=== PATIENT | female | born 1970 | race African-American/Black ===

== ENCOUNTER 2021-03-01 16:33 | Emergency (ER) | payer MEDICAID ==
[~2021-03-01] VITALS: Ht 162.6 cm; Wt 73.0 kg
[2021-03-01] MEDS ORDERED: ACETAMINOPHEN 325MG TABLET PO STA (17:14)
[2021-03-01 17:36] LABS: BASOPHILS % 0.7 % (0.0-2.0); EOSINOPHILS % 0.8 % (0.0-5.0); HEMATOCRIT. 42.1 % (36.0-48.0); HEMOGLOBIN. 14.3 g/dL (12.0-16.0); LYMPHOCYTES % 31.7 % (20.0-50.0); MEAN CORPUSCULAR HEMOGLOBIN 31.9 pg (28.0-32.0); MEAN CORPUSCULAR VOLUME 93.8 fL (81.0-99.0); MEAN PLATELET VOLUME 7.5 fl (7.4-10.4); MONOCYTES % 10.8 % (2.0-8.0); PLATELET 361 x1000/uL (130-400); RED BLOOD CELL COUNT 4.49 mill/uL (4.2-5.4); RED CELL DISTRIBUTION WIDTH 13.7 % (11.6-14.6)
[2021-03-01 17:44] LABS: CHLORIDE 104 mEq/L (98-107)
[2021-03-01] MEDS ORDERED: AMLODIPINE 2.5MG TABLET PO ONE (18:30)
[2021-03-01] MEDS ORDERED: AMLO2.5T2 MT (20:08)
[2021-03-01 20:38] VITALS: BP 145/89
== END 2021-03-01 20:39 | disposition home or self-care (01) ==
LOC: ER 16:33 → CANBEDREQ 19:07 → ER 20:39
DX: R07.89 Other chest pain (principal); I16.0 Hypertensive urgency; Z71.89 Other specified counseling
CPT/HCPCS: 36415; 71045; 80053; 82962; 84484; 85025; 93005; 99285

== ENCOUNTER 2021-03-02 11:59 | Emergency (ER) | payer MEDICAID ==
[~2021-03-02] VITALS: Ht 162.6 cm; Wt 68.0 kg
[~2021-03-02 11:59] MED LIST: AMLO2.5T2 MT
[2021-03-02 12:07] VITALS: BP 127/88
== END 2021-03-02 12:43 | disposition home or self-care (01) ==
LOC: ER 11:59
DX: R07.89 Other chest pain (principal); F41.9 Anxiety disorder, unspecified; Z56.89 Other problems related to employment; Z63.79 Other stressful life events affecting family and household
CPT/HCPCS: 93005; 99283

== ENCOUNTER 2021-03-19 09:59 | Inpatient (IN) | payer BC, MEDICAID ==
[~2021-03-19] VITALS: Ht 162.6 cm; Wt 74.4 kg
[2021-03-19 14:23] LABS: BASOPHILS % 0.8 % (0.0-2.0); EOSINOPHILS % 0.6 % (0.0-5.0); HEMOGLOBIN. 16.3 g/dL (12.0-16.0); MEAN CORPUSCULAR HEMOGLOBIN 31.7 pg (28.0-32.0); MEAN CORPUSCULAR VOLUME 93.5 fL (81.0-99.0); MEAN PLATELET VOLUME 7.6 fl (7.4-10.4); MONOCYTES % 8.7 % (2.0-8.0); NEUTROPHILS % 53.9 % (40.0-76.0); PLATELET 336 x1000/uL (130-400); RED BLOOD CELL COUNT 5.13 mill/uL (4.2-5.4)
[2021-03-19 14:31] LABS: CHLORIDE 106 mEq/L (98-107)
[2021-03-19] MEDS ORDERED: KETAMINE HCL 50 MG/ML 10ML IV ONE (16:45)
[2021-03-19] MEDS ORDERED: IOHEXOL-350 100 ML BOTTLE ONE (17:38)
[2021-03-19] MEDS ORDERED: HYDROMORPHONE HCL/PF 2MG/ML CPJ IV ONE (18:30)
[2021-03-19] MEDS ORDERED: MORPHINE SULFATE 4 MG/ML CPJ (NOT FOR IM USE) IV PRN (23:19)
[2021-03-19] MEDS ORDERED: ONDANSETRON HCL 4MG/2ML INJ IV PRN (23:30)
[2021-03-20] VITALS (9 sets, daily range): BP systolic 126–162; BP diastolic 59–100
[2021-03-20] MEDS: PANTOPRAZOLE SODIUM 40 MG/VIAL IV SCH (09:59)
[2021-03-20] MEDS ORDERED: NALOXONE HCL 0.4MG/ML VIAL IV PRN (11:15)
[2021-03-20] MEDS: ACETAMINOPHEN 325MG TABLET PO PRN ×2 (11:23→18:35)
[2021-03-20] MEDS ORDERED: ONDANSETRON HCL 4MG/2ML INJ IV PRN (12:45)
[2021-03-20] MEDS ORDERED: CLONIDINE 0.1MG TABLET PO PRN (12:45)
[2021-03-20] MEDS ORDERED: ACETAMINOPHEN 325MG TABLET PO PRN (12:45)
[2021-03-20] MEDS ORDERED: AMLO2.5T45 MT (13:44)
[2021-03-20 14:03] LABS: BG BASE EXCESS 0.6 mmol/L (-2.0-2.0); BG CARBOXYHEMOGLOBIN 0.5 % (0.5-1.5); BG DEOXYHEMOGLOBIN 2.2 % (0.0-5.0); BG FRACTION INSPIRED OXYGEN 35; BG HCO3 ACT 24.6 mmol/L (22.0-26.0); BG METHEMOGLOBIN 0.2 % (0.0-1.5); BG OXYGEN SATURATION 97.8 % (92.0-98.5); BG OXYHEMOGLOBIN 97.1 % (94.0-97.0); BG PCO2 37.6 mmHg (35.0-45.0); BG PH 7.434 (7.350-7.450); BG PO2 101.4 mmHg (75.0-100.0); BG SAMPLE SITE RIGHT BRACHIAL; BG VENT MODE MASK - VENTI
[2021-03-20] MEDS: LEVOFLOXACIN 500MG PREMIX 100 ML IV SCH (15:23)
[2021-03-20] MEDS: ENOXAPARIN 40MG/0.4ML SYR SUBCUT SCH (15:24)
[2021-03-20] MEDS: MORPHINE SULFATE 2 MG/ML CPJ (NOT FOR IM USE) IV PRN ×2 (15:25→19:40)
[2021-03-20] MEDS: IPRATROPIUM/ALBUTEROL 0.5-3(2.5)MG/3ML NEB HHN SCH ×2 (15:29→20:29)
[2021-03-20 17:12] LABS: BG BASE EXCESS -1.2 mmol/L (-2.0-2.0); BG CARBOXYHEMOGLOBIN 0.2 % (0.5-1.5); BG DEOXYHEMOGLOBIN 0.7 % (0.0-5.0); BG FRACTION INSPIRED OXYGEN 100; BG HCO3 ACT 22.4 mmol/L (22.0-26.0); BG METHEMOGLOBIN 0.4 % (0.0-1.5); BG OXYGEN SATURATION 99.3 % (92.0-98.5); BG OXYHEMOGLOBIN 98.7 % (94.0-97.0); BG PCO2 34.6 mmHg (35.0-45.0); BG PO2 233.5 mmHg (75.0-100.0); BG SAMPLE SITE RIGHT BRACHIAL; BG TOTAL HEMOGLOBIN 14.7 g/dL (12.0-18.0); BG VENT MODE MASK - NRB
[2021-03-20 17:51] LABS: BASOPHILS % 0.4 % (0.0-2.0); EOSINOPHILS % 0.7 % (0.0-5.0); HEMATOCRIT. 44.3 % (36.0-48.0); HEMOGLOBIN. 15.1 g/dL (12.0-16.0); LYMPHOCYTES % 16.7 % (20.0-50.0); MEAN CORPUSCULAR HEMOGLOBIN 31.6 pg (28.0-32.0); MEAN CORPUSCULAR VOLUME 92.9 fL (81.0-99.0); MEAN PLATELET VOLUME 7.8 fl (7.4-10.4); MONOCYTES % 12.8 % (2.0-8.0); NEUTROPHILS % 69.4 % (40.0-76.0); PLATELET 343 x1000/uL (130-400); RED BLOOD CELL COUNT 4.77 mill/uL (4.2-5.4)
[2021-03-20 18:10] LABS: CHLORIDE 105 mEq/L (98-107)
[2021-03-20 18:19] LABS: CREATINE KINASE 684 IU/L (26-192)
[2021-03-20 18:22] LABS: CREATINE KINASE MB FRACTION 3.5 ng/mL (0.5-3.6)
[2021-03-20 23:53] LABS: CREATINE KINASE MB FRACTION 1.9 ng/mL (0.5-3.6)
[2021-03-21] VITALS (12 sets, daily range): BP systolic 133–155; BP diastolic 75–102
[2021-03-21] MEDS: IPRATROPIUM/ALBUTEROL 0.5-3(2.5)MG/3ML NEB HHN SCH ×6 (01:02→21:21)
[2021-03-21] MEDS: MORPHINE SULFATE 2 MG/ML CPJ (NOT FOR IM USE) IV PRN ×4 (04:42→20:48)
[2021-03-21] MEDS: PANTOPRAZOLE SODIUM 40 MG/VIAL IV SCH (09:20)
[2021-03-21 09:40] LABS: BASOPHILS % 0.6 % (0.0-2.0); EOSINOPHILS % 1.2 % (0.0-5.0); HEMATOCRIT. 42.8 % (36.0-48.0); HEMOGLOBIN. 14.3 g/dL (12.0-16.0); MEAN CORPUSCULAR HEMOGLOBIN 31.6 pg (28.0-32.0); MEAN CORPUSCULAR VOLUME 94.4 fL (81.0-99.0); MEAN PLATELET VOLUME 7.6 fl (7.4-10.4); MONOCYTES % 11.6 % (2.0-8.0); NEUTROPHILS % 65.6 % (40.0-76.0); PLATELET 334 x1000/uL (130-400); RED BLOOD CELL COUNT 4.53 mill/uL (4.2-5.4); RED CELL DISTRIBUTION WIDTH 12.9 % (11.6-14.6)
[2021-03-21 09:45] LABS: CHLORIDE 104 mEq/L (98-107)
[2021-03-21] MEDS: ENOXAPARIN 40MG/0.4ML SYR SUBCUT SCH (14:14)
[2021-03-21] MEDS: LEVOFLOXACIN 500MG PREMIX 100 ML IV SCH (14:15)
[2021-03-21] MEDS: FAMOTIDINE 20MG/2ML VIAL IV SCH (20:47)
[2021-03-21] MEDS: ACETAMINOPHEN 325MG TABLET PO PRN (23:40)
[2021-03-21] MEDS: ALPRAZOLAM 0.5 MG TABLET PO PRN (23:40)
[2021-03-22] VITALS (12 sets, daily range): BP systolic 118–152; BP diastolic 54–99
[2021-03-22] MEDS: IPRATROPIUM/ALBUTEROL 0.5-3(2.5)MG/3ML NEB HHN SCH ×6 (01:03→19:47)
[2021-03-22] MEDS: MORPHINE SULFATE 2 MG/ML CPJ (NOT FOR IM USE) IV PRN ×2 (02:55→20:27)
[2021-03-22] MEDS: FAMOTIDINE 20MG/2ML VIAL IV SCH (09:27)
[2021-03-22] MEDS: ENOXAPARIN 40MG/0.4ML SYR SUBCUT SCH (13:51)
[2021-03-22] MEDS: LEVOFLOXACIN 500MG PREMIX 100 ML IV SCH (13:51)
[2021-03-22] MEDS: FAMOTIDINE 20MG TABLET PO SCH (20:27)
[2021-03-22] MEDS: ALPRAZOLAM 0.5 MG TABLET PO PRN (22:53)
[2021-03-23] VITALS (10 sets, daily range): BP systolic 123–150; BP diastolic 77–102
[2021-03-23] MEDS: IPRATROPIUM/ALBUTEROL 0.5-3(2.5)MG/3ML NEB HHN SCH ×3 (00:38→13:02)
[2021-03-23] MEDS: FAMOTIDINE 20MG TABLET PO SCH (08:03)
[2021-03-23] MEDS: MORPHINE SULFATE 2 MG/ML CPJ (NOT FOR IM USE) IV PRN (13:39)
[2021-03-23] MEDS: LEVOFLOXACIN 500MG PREMIX 100 ML IV SCH (14:11)
[2021-03-23] MEDS: ENOXAPARIN 40MG/0.4ML SYR SUBCUT SCH (14:11)
[2021-03-24] MEDS ORDERED: LEVOFLOXACIN 500MG TABLET PO SCH (11:00)
== END 2021-03-23 16:35 | disposition home or self-care (01) | DRG 190 ==
LOC: ER 09:59 → MICUSO 18:24 → EDBEDREQ 18:36 → 5WST 03-20 13:14 → 5EST 03-20 14:08
PROVIDERS: ADMIT Internal Medicine; ATTEND Internal Medicine
PROC: 0W9B30Z Drainage of Left Pleural Cavity with Drainage Device, Percutaneous Approach (ICD-10-PCS; principal; 2021-03-19)
DX: J43.9 Emphysema, unspecified (principal); J96.00 Acute respiratory failure, unspecified whether with hypoxia or hypercapnia; J93.12 Secondary spontaneous pneumothorax; Z20.822 Contact with and (suspected) exposure to COVID-19; I10 Essential (primary) hypertension; F12.90 Cannabis use, unspecified, uncomplicated; Z87.891 Personal history of nicotine dependence
CPT/HCPCS: 36415; 36600; 71045; 71275; 80048; 80053; 82375; 82550; 82553; 82805; 83880; 84484; 85025; 85379; 93005; 93306; 94640; 99285; C9113; J1170; J1650; J1956; J2270; J2405; J3490; Q9967; U0003; U0005

== ENCOUNTER 2021-10-16 22:46 | Emergency (ER) | payer BC, MEDICAID ==
[~2021-10-16] VITALS: Ht 162.6 cm; Wt 70.0 kg
[~2021-10-16 22:46] MED LIST changes: +AMLO2.5T45 MT
[2021-10-16] MEDS ORDERED: VISCOUS LIDOCAINE 2% 15 ML UDC PO STA (23:18)
[2021-10-16] MEDS ORDERED: DICYCLOMINE 10 MG/5 ML ORAL SYR PO STA (23:18)
[2021-10-16] MEDS ORDERED: MAGNESIUM/ALUMINUM HYDROXIDE/SIMETHICONE 30ML UDC PO STA (23:18)
[2021-10-16 23:49] LABS: BASOPHILS % 1.1 % (0.0-2.0); EOSINOPHILS % 2.4 % (0.0-5.0); HEMATOCRIT. 39.6 % (36.0-48.0); HEMOGLOBIN. 13.4 g/dL (12.0-16.0); LYMPHOCYTES % 34.8 % (20.0-50.0); MEAN CORPUSCULAR HEMOGLOBIN 30.3 pg (28.0-32.0); MEAN CORPUSCULAR VOLUME 89.6 fL (81.0-99.0); MEAN PLATELET VOLUME 7.6 fl (7.4-10.4); NEUTROPHILS % 51.7 % (40.0-76.0); PLATELET 326 x1000/uL (130-400); RED BLOOD CELL COUNT 4.42 mill/uL (4.2-5.4); RED CELL DISTRIBUTION WIDTH 14.3 % (11.6-14.6)
[2021-10-17 00:02] LABS: CHLORIDE 105 mEq/L (98-107)
[2021-10-17 00:42] LABS: CLARITY URINE CLEAR (CLEAR); COLOR URINE YELLOW (YELLOW); KETONES URINE NEGATIVE (NEGATIVE); LEUKOCYTE ESTERASE URINE NEGATIVE (NEGATIVE); NITRITE URINE NEGATIVE (NEGATIVE); OCCULT BLOOD URINE 2+ (NEGATIVE); PROTEIN URINE TRACE (NEGATIVE); SPECIFIC GRAVITY URINE 1.021 (1.005-1.030); UROBILINOGEN URINE 0.2 E.U./dL (0.2-1.0)
[2021-10-17 02:00] VITALS: BP 131/89
[2021-10-17] MEDS ORDERED: FAMO-135 MT (02:02)
== END 2021-10-17 02:21 | disposition home or self-care (01) ==
LOC: ER 22:46
DX: R10.13 Epigastric pain (principal); K76.0 Fatty (change of) liver, not elsewhere classified; I10 Essential (primary) hypertension; Z88.6 Allergy status to analgesic agent
CPT/HCPCS: 36415; 76705; 80053; 81003; 85025; 99284

== ENCOUNTER 2021-11-07 09:33 | Emergency (ER) | payer BC, MEDICAID ==
[~2021-11-07] VITALS: Ht 162.6 cm; Wt 69.0 kg
[~2021-11-07 09:33] MED LIST changes: +FAMO-135 MT
[2021-11-07 10:06] VITALS: BP 168/92
[2021-11-07 11:19] LABS: BASOPHILS % 1.1 % (0.0-2.0); EOSINOPHILS % 8.9 % (0.0-5.0); HEMATOCRIT. 41.7 % (36.0-48.0); HEMOGLOBIN. 14.1 g/dL (12.0-16.0); LYMPHOCYTES % 25.1 % (20.0-50.0); MEAN CORPUSCULAR HEMOGLOBIN 29.8 pg (28.0-32.0); MEAN CORPUSCULAR VOLUME 88.2 fL (81.0-99.0); MEAN PLATELET VOLUME 7.9 fl (7.4-10.4); MONOCYTES % 8.7 % (2.0-8.0); NEUTROPHILS % 56.2 % (40.0-76.0); PLATELET 317 x1000/uL (130-400); RED BLOOD CELL COUNT 4.73 mill/uL (4.2-5.4); RED CELL DISTRIBUTION WIDTH 14.3 % (11.6-14.6)
[2021-11-07 11:33] LABS: CHLORIDE 104 mEq/L (98-107)
[2021-11-07 11:37] LABS: HCG SCREEN NEGATIVE
[2021-11-07 13:01] LABS: CLARITY URINE CLEAR (CLEAR); COLOR URINE YELLOW (YELLOW); KETONES URINE NEGATIVE (NEGATIVE); LEUKOCYTE ESTERASE URINE 3+ (NEGATIVE); NITRITE URINE NEGATIVE (NEGATIVE); OCCULT BLOOD URINE TRACE (NEGATIVE); PROTEIN URINE NEGATIVE (NEGATIVE); SPECIFIC GRAVITY URINE 1.012 (1.005-1.030); UROBILINOGEN URINE 0.2 E.U./dL (0.2-1.0)
[2021-11-07] MEDS ORDERED: CEPH250C2 MT (14:18)
== END 2021-11-07 14:45 | disposition home or self-care (01) ==
LOC: ER 09:33
DX: N30.00 Acute cystitis without hematuria (principal); I10 Essential (primary) hypertension
CPT/HCPCS: 36415; 76830; 76856; 80053; 81003; 84703; 85025; 99284

== ENCOUNTER 2023-11-17 15:51 | Emergency (ER) | payer BC, MEDICAID, OTHER ==
[~2023-11-17] VITALS: Ht 162.6 cm; Wt 77.0 kg
[~2023-11-17 15:51] MED LIST changes: +CEPH250C2 MT
[2023-11-17 15:55] VITALS: BP 145/82; PULSE 92; RESP 14; TEMP 98.1; O2SAT 99
[2023-11-17 17:05] LABS: CLARITY URINE CLEAR (CLEAR); COLOR URINE YELLOW (YELLOW); GLUCOSE URINE NEGATIVE (NEGATIVE); KETONES URINE NEGATIVE (NEGATIVE); LEUKOCYTE ESTERASE URINE 2+ (NEGATIVE); NITRITE URINE NEGATIVE (NEGATIVE); OCCULT BLOOD URINE NEGATIVE (NEGATIVE); PROTEIN URINE NEGATIVE (NEGATIVE); UROBILINOGEN URINE 0.2 E.U./dL (0.2-1.0)
[2023-11-17 17:50] LABS: BACTERIA URINE 1+; RBC URINE 0-2 /hpf (0-2); SQUAMOUS EPITHELIAL CELL URINE 1+ /lpf (RARE/1+)
[2023-11-17] MEDS ORDERED: NITR-87 MT (17:52)
== END 2023-11-17 18:12 | disposition home or self-care (01) ==
LOC: ER 16:06
DX: N39.0 Urinary tract infection, site not specified (principal); I10 Essential (primary) hypertension
CPT/HCPCS: 81003; 81025; 99283

== ENCOUNTER 2024-11-20 15:49 | Emergency (ER) | payer SELFPAY ==
[~2024-11-20] VITALS: Ht 162.6 cm; Wt 77.0 kg
[~2024-11-20 15:49] MED LIST changes: +NITR-87 MT
[2024-11-20 16:04] VITALS: O2SAT 99
[2024-11-20 17:13] LABS: BASOPHILS % 1.0 % (0.0-2.0); EOSINOPHILS % 0.8 % (0.0-5.0); HEMATOCRIT. 40.6 % (36.0-48.0); HEMOGLOBIN. 14.1 g/dL (12.0-16.0); LYMPHOCYTES % 24.6 % (20.0-50.0); MEAN PLATELET VOLUME 7.4 fl (7.4-10.4); MONOCYTES % 9.8 % (2.0-8.0); NEUTROPHILS % 63.8 % (40.0-76.0); PLATELET 303 x1000/uL (130-400); RED BLOOD CELL COUNT 4.33 mill/uL (4.2-5.4); RED CELL DISTRIBUTION WIDTH 13.8 % (11.6-14.6)
[2024-11-20] MEDS: KETOROLAC 30MG/ML VIAL IM ONE (17:13)
[2024-11-20 17:23] LABS: CREATININE 0.8 mg/dL (0.6-1.0); UREA NITROGEN BLOOD 20 mg/dL (9-23)
[2024-11-20] MEDS ORDERED: NAPR-681 MT (17:39)
[2024-11-20] MEDS ORDERED: HYDR25TA MT (17:39)
[2024-11-20 19:06] VITALS: BP 195/90; PULSE 97; RESP 16; TEMP 36.7; O2SAT 99
== END 2024-11-20 19:09 | disposition home or self-care (01) ==
LOC: ER 15:49
DX: S93.402A Sprain of unspecified ligament of left ankle, initial encounter (principal); I10 Essential (primary) hypertension; Z79.899 Other long term (current) drug therapy; X58.XXXA Exposure to other specified factors, initial encounter; Y93.89 Activity, other specified; Y92.89 Other specified places as the place of occurrence of the external cause; Y99.8 Other external cause status
CPT/HCPCS: 80048; 85025; 36415; 73610; 96372; 99284; J1885; A6449; Z7610